=== PATIENT | female | born 1990 | race Caucasian/White ===

== ENCOUNTER 2016-10-31 04:34 | Inpatient (IN) | payer BC ==
[2016-10-31] MEDS ORDERED: METHYLERGONOVINE 0.2 MG/ML 1 ML AMP IM PRN (06:22)
[2016-10-31] MEDS ORDERED: OXYTOCIN 10 UNIT/ML 1 ML VIAL IM PRN (06:22)
[2016-10-31] MEDS ORDERED: CARBOPROST TROMETHAMINE 250 MCG/ML 1 ML AMP IM PRN (06:22)
[2016-10-31] MEDS ORDERED: LIDOCAINE 1% (PF) 10 MG/ML (30 ML SDV) SQ PRN (06:22)
[2016-10-31] MEDS ORDERED: TERBUTALINE 1 MG/ML VIAL SQ PRN (06:22)
[2016-10-31 06:43] LABS: Basophils % (A) 0 %; CH 30.7; Eosinophils # (A) 0.1 k/uL (0-0.7); Eosinophils % (A) 1 %; HCT 38.6 % (34.0-46.0); HDW 2.43; HGB 13.4 gm/dL (11.4-16.0); Luc # (Auto) 0.17; Luc % (Auto) 1; Lymphocytes # (A) 1.5 k/uL (1.0-4.8); Lymphocytes % (A) 11 %; MCH 31.5 pg (25.0-35.0); MCHC 34.7 g/dL (31.0-37.0); MCV 90.7 fL (80.0-100.0); Mean Platelet Volume 9.8; Monocytes # (A) 0.8 k/uL (0-1.0); Monocytes % (A) 6 %; Neutrophils # (A) 11.2 k/uL (1.3-7.7); Neutrophils % (A) 81 %; RBC 4.26 m/uL (3.80-5.40); RDW 14.6 % (11.5-15.5); WBC 13.9 k/uL (3.8-10.6); WBC (Perox) 14.46
[2016-10-31] MEDS: LACTATED RINGERS 1,000 ML IV SCH ×2 (07:08→14:44)
[2016-10-31 07:14] VITALS: BMI 33.7
--- NOTE | 2016-10-31 07:15 | P.HPOB ---
History of Present Illness H&P Date: 10/31/16 Chief Complaint: Active labor, contractions, intrauterine at 41-2/7 weeks This is a 26 year old 1 para 0 at 41-2/7 weeks with the last month Rosemary is me with an estimated due date of 714 based on last menstrual period equal to a 20 week ultrasound. States contractions started early this morning and then she came into labor and delivery. Contractions are every 2-3 minutes currently no loss of fluid or vaginal bleeding at home and she noted good movement. lab work showed a blood type of AB- she was RPR nonreactive rubella immune hepatitides B 16 and was negative HIV was negative and group beta strep was negative on 09/20/2016. She did pass her 1hour gds. Past Medical History Past Medical History: No Reported History History of Any Multi-Drug Resistant Organisms: None Reported Past Surgical History: Breast Surgery, Cholecystectomy Additional Past Surgical History / Comment(s): eustachian tubes, nose fracture, breast biopsy, Past Anesthesia/Blood Transfusion Reactions: No Reported Reaction Smoking Status: Never smoker - Past Family History Mother Family Medical History: No Reported History Medications and Allergies Home Medications Medication Instructions Recorded Confirmed Type Pnv No.95/Ferrous Fum/Folic AC 1 tab PO DAILY 10/31/16 10/31/16 History [ Multivitamin Tablet] Allergies Allergy/AdvReac Type Severity Reaction Status Date / Time No Known Allergies Allergy Verified 10/31/16 04:38 Exam Osteopathic Statement: *. No significant issues noted on an osteopathic structural exam other than those noted in the History and Physical/Consult. - Vital Signs Vital signs: Vital Signs Temp Pulse Resp BP Pulse Ox 10/31/16 04:38 96.5 F L 100 16 132/88 97 Intake and Output 10/30/16 10/31/16 10/31/16 22:59 06:59 14:59 Other: Weight 92.079 kg - OBG Physical Exam Abdomen: gravid and appropriate for gestational age Vulva: both: normal Cervix: 7- 8 cm 80% effaced at a -1 Results Result Diagrams: 10/31/16 06:20 Abnormal Lab Results - Last 24 Hours (Table) 10/31/16 Range/Units 06:20 WBC 13.9 H (3.8-10.6) k/uL Neutrophils # 11.2 H (1.3-7.7) k/uL Assessment and Plan (1) Active labor at term Status: Acute Plan: We'll admit patient to labor and delivery with expectant management and anticipate spontaneous vaginal delivery
[2016-10-31] MEDS ORDERED: Acetaminophen-Codeine 300-30mg TAB PO PRN (11:59)
[2016-10-31] MEDS ORDERED: WITCH HAZEL 1 EACH MED..PAD TOPICAL PRN (11:59)
[2016-10-31] MEDS ORDERED: HYDROCORTISONE 2.5% RECTAL CREAM 30 GM TUBE RECTAL PRN (11:59)
[2016-10-31] MEDS ORDERED: diphenhydrAMINE 50 MG/ML 1 ML VIAL IVP PRN ×2 (11:59)
[2016-10-31] MEDS ORDERED: BENZOCAINE/MENTHOL SPRAY 1 GM/SPRAY AEROSOL TOPICAL PRN (11:59)
[2016-10-31] MEDS ORDERED: SIMETHICONE 80 MG CHEWABLE PO PRN (11:59)
[2016-10-31] MEDS ORDERED: diphenhydrAMINE 25 MG CAP PO PRN (11:59)
[2016-10-31] MEDS ORDERED: diphenhydrAMINE 50 MG CAP PO PRN (11:59)
[2016-10-31] MEDS ORDERED: LANOLIN CREAM 5 GM TUBE TOPICAL PRN (11:59)
[2016-10-31] MEDS ORDERED: ZOLPIDEM 5 MG TAB PO PRN (11:59)
--- NOTE | 2016-10-31 11:59 | P.PROBDLV ---
Vaginal Delivery Note - . Vaginal Delivery Note: Derick lucero 26-year-old 1 now para 1 presented to labor and delivery with complaints of contractions earlier today she progressed to complete without difficulty and began pushing and had a spontaneous vaginal delivery over an intact perineum of a viable female infant at 1138. ( tyler) Apgars were 7 and 8 at one and 5 minutes respectively. Her estimated blood loss was less than 500 mL. A midline second-degree laceration was noted after the placenta had been delivered spontaneously. This laceration was repaired with 3-0 Vicryl in the usual fashion.
[2016-10-31] MEDS: IBUPROFEN 600 MG TAB PO PRN ×2 (12:07→19:41)
[2016-10-31] MEDS ORDERED: OXYTOCIN 20 UNITS/1000 ML NS 1,000 ML IV SCH (12:15)
[2016-10-31] MEDS: ACETAMINOPHEN TAB 325 MG TAB PO PRN ×2 (16:00→23:57)
[2016-10-31] MEDS: SENNOSIDES-DOCUSATE SODIUM 1 EACH TAB PO SCH (19:41)
[2016-11-01] MEDS: LACTATED RINGERS 1,000 ML IV SCH (00:36)
[2016-11-01] MEDS: IBUPROFEN 600 MG TAB PO PRN ×3 (06:02→19:15)
[2016-11-01 06:36] LABS: Basophils # (A) 0.1 k/uL (0-0.2); Basophils % (A) 0 %; CH 30.4; CHCM 33.2; Eosinophils # (A) 0.1 k/uL (0-0.7); Eosinophils % (A) 1 %; HCT 33.8 % (34.0-46.0); HGB 11.3 gm/dL (11.4-16.0); Luc # (Auto) 0.24; Luc % (Auto) 1; Lymphocytes % (A) 12 %; MCH 30.7 pg (25.0-35.0); MCHC 33.3 g/dL (31.0-37.0); MCV 92.1 fL (80.0-100.0); Mean Platelet Volume 8.8; Monocytes # (A) 0.9 k/uL (0-1.0); Monocytes % (A) 5 %; Neutrophils # (A) 13.4 k/uL (1.3-7.7); Neutrophils % (A) 80 %; RBC 3.67 m/uL (3.80-5.40); WBC 16.7 k/uL (3.8-10.6); WBC (Perox) 17.44
[2016-11-01] MEDS: ACETAMINOPHEN TAB 325 MG TAB PO PRN ×2 (08:16→15:39)
[2016-11-01] MEDS: SENNOSIDES-DOCUSATE SODIUM 1 EACH TAB PO SCH (08:17)
--- NOTE | 2016-11-01 08:38 | P.PNOBGVD ---
Subjective - Subjective Patient reports: Reports appetite normal, Reports voiding normally, Reports pain well controlled, Reports ambulating normally : doing well Objective - Latest Vital Signs Latest vital signs: Vital Signs Temp Pulse Resp BP Pulse Ox 11/01/16 08:00 98.5 F 100 16 119/73 11/01/16 00:00 98.5 F 119 H 18 120/80 97 10/31/16 20:00 97.7 F 118 H 17 131/82 97 10/31/16 16:00 97.6 F 126 H 18 130/71 97 10/31/16 13:54 97.6 F 115 H 17 117/76 96 10/31/16 13:24 122 H 19 125/79 10/31/16 12:54 117 H 16 120/83 10/31/16 12:39 127 H 18 141/80 10/31/16 12:24 117 H 18 117/69 10/31/16 12:09 123 H 17 116/67 10/31/16 11:54 97.1 F L 126 H 16 142/76 96 Intake and Output 10/31/16 11/01/16 11/01/16 22:59 06:59 14:59 Intake Total 600 Balance 600 Intake: Oral 600 Other: # Voids 0 2 1 - Exam Lungs: bilateral: normal Chest: Normal S1, Normal S2 Extremities: Present: normal Abdomen: Present: normal appearance, soft Uterus: Present: normal, firm (Uterine fundus as tonic and nontender at the umbilicus.) - Labs Labs: Abnormal Lab Results - Last 24 Hours (Table) 11/01/16 Range/Units 06:15 WBC 16.7 H (3.8-10.6) k/uL RBC 3.67 L (3.80-5.40) m/uL Hgb 11.3 L (11.4-16.0) gm/dL Hct 33.8 L (34.0-46.0) % Neutrophils # 13.4 H (1.3-7.7) k/uL Assessment and Plan (1) Normal spontaneous vaginal delivery Narrative/Plan: Continue routine care. The patient will seek the assistance of the direct response consultant today and I anticipate discharge home tomorrow. Current Visit: Yes Status: Acute Code(s): O80 - ENCOUNTER FOR FULL-TERM UNCOMPLICATED DELIVERY SNOMED Code(s): 53611512
[2016-11-02] MEDS: ACETAMINOPHEN TAB 325 MG TAB PO PRN ×2 (00:16→06:56)
[2016-11-02] MEDS: SENNOSIDES-DOCUSATE SODIUM 1 EACH TAB PO SCH ×2 (00:45→07:33)
[2016-11-02 00:48] VITALS: RESP 17
[2016-11-02 09:30] VITALS: BP 115/73; PULSE 87; TEMP 97.8
--- NOTE | 2016-11-02 09:35 | P.DS ---
Providers Date of admission: 10/31/16 06:07 Expected date of discharge: 11/02/16 Attending physician: Netta Davey - Discharge Diagnosis(es) (1) Normal spontaneous vaginal delivery Current Visit: Yes Status: Acute Hospital Course: The patient is a 26-year-old 1 para 0 admitted at 41-2/7 weeks by good dating parameters. She is admitted in early active labor with all signs reassuring. Her has been uncomplicated and group B strep status is negative. On labor and delivery, she made fairly quick progression to complete and then pushed for approximately 3 hours but ultimately to a normal spontaneous vaginal delivery of a viable 7 lbs. 9 oz. baby girl with Apgars of 8 at 1 minute and 9 at 5 minutes. Her course was unremarkable with vital signs remaining stable and her temperature was afebrile throughout. She was deemed stable for discharge by day #2 and was discharged home to follow-up in the office in 6 weeks' time routinely. Discharge instructions included calling for any significantly increased bleeding or foul-smelling lochia, significantly increased fever abdominal pain, perineal complaints, breast complaints, or anything else that concerned her. She was additionally instructed to have nothing in the vagina for at least 6 weeks time to include intercourse. She understood her instructions and agrees to follow up as noted above. Discharge medications included continued vitamins as well as [id number]-[id number] analgesic pain medications as needed. Maternal blood type is AB- and cord blood was sent for evaluation for the necessity of RhoGAM prior to discharge. Rubella status is immune. Procedures: #1. Normal spontaneous vaginal delivery #2. Repair of perineal laceration Patient Condition at Discharge: Good Plan - Discharge Summary New Discharge Prescriptions: No Action Pnv No.95/Ferrous Fum/Folic AC [ Multivitamin Tablet] 1 tab PO DAILY Discharge Medication List Pnv No.95/Ferrous Fum/Folic AC [ Multivitamin Tablet] 1 tab PO DAILY [History] Follow up Appointment(s)/Referral(s): Jacob Abad MD [STAFF PHYSICIAN] - 6 Weeks Discharge Disposition: HOME SELF-CARE
[2016-11-02] MEDS: IBUPROFEN 600 MG TAB PO PRN (10:55)
== END 2016-11-02 13:45 | disposition home or self-care (01) | DRG 775 ==
LOC: FBPOP 04:34 → 4FBP 06:07
PROVIDERS: ADMIT Obstetrics & Gynecology Obstetrics; ATTEND Obstetrics & Gynecology Obstetrics
PROC: 10E0XZZ Delivery of Products of Conception, External Approach (ICD-10-PCS; principal; 2016-10-31)
PROC: 0KQM0ZZ Repair Perineum Muscle, Open Approach (ICD-10-PCS; 2016-10-31)
DX: O48.0 Post-term pregnancy (principal); O70.1 Second degree perineal laceration during delivery; Z3A.41 41 weeks gestation of pregnancy; Z37.0 Single live birth
CPT/HCPCS: 59025; 84112; 85025; 88307; 99213

== ENCOUNTER 2019-10-15 07:10 | Inpatient (IN) | payer BC ==
[2019-10-15] MEDS ORDERED: ZOLPIDEM 5 MG TAB PO PRN (07:25)
[2019-10-15] MEDS ORDERED: WITCH HAZEL 1 EACH MED..PAD TOPICAL PRN (07:25)
[2019-10-15] MEDS ORDERED: diphenhydrAMINE 25 MG CAP PO PRN (07:25)
[2019-10-15] MEDS ORDERED: HYDROCORTISONE 2.5% RECTAL CREAM 30 GM TUBE RECTAL PRN (07:25)
[2019-10-15] MEDS ORDERED: LANOLIN CREAM 5 GM TUBE TOPICAL PRN (07:25)
[2019-10-15] MEDS ORDERED: ACETAMINOPHEN TAB 325 MG TAB PO PRN (07:25)
[2019-10-15] MEDS ORDERED: SIMETHICONE 80 MG CHEWABLE PO PRN (07:25)
[2019-10-15] MEDS ORDERED: BENZOCAINE/MENTHOL SPRAY 1 GM/SPRAY AEROSOL TOPICAL PRN (07:25)
[2019-10-15] MEDS ORDERED: diphenhydrAMINE 50 MG CAP PO PRN (07:25)
[2019-10-15] MEDS ORDERED: OXYTOCIN 20 UNITS/1000 ML NS 1,000 ML IV SCH (07:30)
[2019-10-15 08:24] LABS: Basophils % (A) 0 %; Eosinophils # (A) 0.1 k/uL (0-0.7); Eosinophils % (A) 1 %; Lymphocytes # (A) 1.3 k/uL (1.0-4.8); Lymphocytes % (A) 9 %; MCH 28.3 pg (25.0-35.0); MCHC 32.4 g/dL (31.0-37.0); MCV 87.3 fL (80.0-100.0); Mean Platelet Volume 8.9; Monocytes # (A) 0.7 k/uL (0-1.0); Monocytes % (A) 5 %; Neutrophils # (A) 12.1 k/uL (1.3-7.7); Neutrophils % (A) 84 %; Platelet Count 212 k/uL (150-450); RBC 4.58 m/uL (3.80-5.40); RDW 13.4 % (11.5-15.5); WBC 14.3 k/uL (3.8-10.6)
[2019-10-15] MEDS: IBUPROFEN 600 MG TAB PO PRN ×2 (08:44→20:42)
--- NOTE | 2019-10-15 10:48 | P.HPOB ---
History of Present Illness H&P Date: 10/15/19 Chief Complaint: 40-0/7, precipitous delivery at home The patient is a 29-year-old 2 para 1001 admitted at 40-0/7 weeks as established by last menstrual period and confirmed by 8 week ultrasound. She is admitted after having had a precipitous home delivery in the presence of EMS staff. At the time of presentation to the hospital, both the and the placenta had been delivered and both mother and were comfortably in recovery. Her has been uncomplicated though she did have a large for gestational age fetus at 36 weeks noted to be in the 94th percentile. Group B strep status was negative. Obstetrical history: 2 para 1001 with 1 term vaginal delivery without complications. Current statistics are listed in history present illness. EDC of 10/15/2019 was established by last menstrual period and confirmed by 8 week ultrasound. Laboratory workup demonstrates a blood type of AB- with a negative antibody screen. Rubella status is immune. The remainder of the laboratory workup was within normal limits. One hour Glucola was elevated but followed by a normal three-hour glucose tolerance test. Group B strep status is negative. Gynecologic history: Unremarkable with no history of any infections to include STDs. Review of Systems Review of systems is confined to history of present illness. Past Medical History Past Medical History: No Reported History History of Any Multi-Drug Resistant Organisms: None Reported Past Surgical History: Breast Surgery, Cholecystectomy Additional Past Surgical History / Comment(s): eustachian tubes, nose fracture, breast biopsy, Past Anesthesia/Blood Transfusion Reactions: No Reported Reaction Past Psychological History: No Psychological Hx Reported Smoking Status: Never smoker Past Alcohol Use History: None Reported, Occasional Past Drug Use History: None Reported - Past Family History Mother Family Medical History: No Reported History Medications and Allergies Home Medications Medication Instructions Recorded Confirmed Type Pnv No.95/Ferrous Fum/Folic AC 1 tab PO DAILY 10/31/16 10/31/16 History [ Multivitamin Tablet] Allergies Allergy/AdvReac Type Severity Reaction Status Date / Time No Known Allergies Allergy Verified 10/31/16 04:38 Exam Vital Signs Temp Pulse Resp BP 10/15/19 10:29 88 16 133/83 10/15/19 09:00 88 16 129/65 10/15/19 08:30 93 16 135/84 10/15/19 07:45 94 16 119/77 10/15/19 07:30 81 16 124/75 10/15/19 07:23 97.9 F 81 16 128/79 10/15/19 07:15 97.9 F 81 16 128/79 Intake and Output 10/14/19 10/15/19 10/15/19 22:59 06:59 14:59 Output Total 100 Balance -100 Output: Estimated Blood Loss 100 Other: Weight 97.069 kg In general, this is a well-developed, well-nourished white female in no acute distress resting comfortably in recovery after delivery. Her heart has a regular rhythm and rate without murmur. Her lungs are clear to auscultation bilaterally in all orta. Her abdomen is nondistended, has normal active bowel sounds, soft, nontender, and without any palpable masses aside from the tonic uterine fundus noted just below the umbilicus. Her extremities are without any cyanosis, clubbing, or significant edema and are nontender to palpation bi laterally. Pelvic examination is confined to examination the perineum which demonstrates a small second-degree perineal laceration which requires a [id number] stitch to close. Results Result Diagrams: 10/15/19 08:04 Abnormal Lab Results - Last 24 Hours (Table) 10/15/19 Range/Units 08:04 WBC 14.3 H (3.8-10.6) k/uL Neutrophils # 12.1 H (1.3-7.7) k/uL Assessment and Plan (1) Precipitous delivery Current Visit: Yes Status: Acute Code(s): O62.3 - PRECIPITATE LABOR SNOMED Code(s): 402060907 (2) Normal spontaneous vaginal delivery Current Visit: Yes Status: Acute Code(s): O80 - ENCOUNTER FOR FULL-TERM UNCOMPLICATED DELIVERY SNOMED Code(s): 46985283 Plan: As noted in history of present illness, the patient delivered precipitously while at home in the presence of EMS staff. She reports that she had had spontaneous rupture of membranes at approximately 4:30 in the morning after which times contractions became significantly harder and she suddenly felt the urge to push. On labor and delivery, all signs are reassuring and she is stable. She is admitted for routine care.
--- NOTE | 2019-10-15 10:52 | P.PROBDLV ---
Vaginal Delivery Note - . Vaginal Delivery Note: The patient is a 29-year-old 2 para 1001 admitted at 40-0/7 weeks by good dating parameters. She is admitted after delivery precipitously at home in the presence of EMS staff. Her has been uncomplicated up to this point and group B strep status is negative. She is known to be Rh- and did not receive RhoGAM as her is also known to be Rh-. She reports that labor began with rupture of membranes at approximately 4:30 this morning after which time contractions became significantly close together and uncomfortable. She had called for an ambulance which arrived just as she felt the urge to push. She then pushed to a normal spontaneous vaginal delivery of a viable 7 lbs. 13 oz. baby girl. Apgars were not assigned by EMS but the baby was reportedly vigorous after some stimulation. In transit to the hospital, the placenta was apparently delivered spontaneously and intact. Upon arrival to the hospital I was telephoned at which time I presented and examined the patient and found her to have a very small second-degree midline perineal laceration which required a dzpeli-[id number] stitch of 3-0 chromic catgut placed under 1% lidocaine local block. Estimated blood loss for the entire case was unclear as it was on documented by the EMS staff. There were no complications aside from the home delivery and precipitous nature of the delivery. All sponge, instrument, and needle counts were correct at the end of examination of the patient. Both mother and infant are resting comfortably in recovery.
[2019-10-15] MEDS: SENNOSIDES-DOCUSATE SODIUM 1 EACH TAB PO SCH ×2 (20:43)
[2019-10-16 05:39] LABS: Basophils % (A) 0 %; Eosinophils # (A) 0.1 k/uL (0-0.7); Eosinophils % (A) 1 %; HCT 35.9 % (34.0-46.0); HGB 11.4 gm/dL (11.4-16.0); Lymphocytes % (A) 19 %; MCH 27.5 pg (25.0-35.0); MCHC 31.7 g/dL (31.0-37.0); MCV 86.9 fL (80.0-100.0); Mean Platelet Volume 8.7; Monocytes # (A) 0.7 k/uL (0-1.0); Monocytes % (A) 7 %; Neutrophils % (A) 70 %; Platelet Count 186 k/uL (150-450); RBC 4.14 m/uL (3.80-5.40); RDW 13.8 % (11.5-15.5)
--- NOTE | 2019-10-16 08:58 | P.DS ---
Providers Date of admission: 10/15/19 07:10 Expected date of discharge: 10/16/19 Attending physician: Jacob Abad Primary care physician: Stated None - Discharge Diagnosis(es) (1) Precipitous delivery Current Visit: Yes Status: Acute (2) Normal spontaneous vaginal delivery Current Visit: Yes Status: Acute Hospital Course: The patient is a 29-year-old 2 para 1001 admitted at 40-0/7 weeks by good dating parameters perches admitted after having had a precipitous home delivery in the presence of EMS staff. She ultimately presented to labor and delivery having delivered the placenta as well which was examined and found to be complete. She was noted to have a small second-degree perineal laceration which was repaired. Her course has been unremarkable with vital signs being stable and her temperature was afebrile throughout. She was deemed stable for discharge on day #1 was discharged home to follow-up in the office in 6 weeks' time routinely. Discharge instructions included calling for any significantly increased bleeding or foul-smelling lochia, significantly increased fever or abdominal pain, perineal complaints, breast complaints, or anything else that concerned her. She was additionally instructed to have nothing in the vagina for at least 6 weeks time to include intercourse. She understood her instructions and agrees follow up as noted above. Discharge medications included only continue vitamins as she has opted to breast- feed as well as continued [id number] analgesic pain medications as needed. Maternal blood type is AB- and her is also known to be Rh- so cord blood was not sent for evaluation for the necessity of RhoGAM. Rubella status is immune. Procedures: #1. Precipitous normal spontaneous vaginal delivery at home #2. Repair of perineal laceration Patient Condition at Discharge: Good Plan - Discharge Summary Discharge Rx Participant: No New Discharge Prescriptions: No Action Pnv No.95/Ferrous Fum/Folic AC [ Multivitamin Tablet] 1 tab PO DAILY Discharge Medication List Pnv No.95/Ferrous Fum/Folic AC [ Multivitamin Tablet] 1 tab PO DAILY 10/31/16 [History] Follow up Appointment(s)/Referral(s): Jacob Abad MD [STAFF PHYSICIAN] - 6 Weeks Discharge Disposition: HOME SELF-CARE
[2019-10-16] MEDS: SENNOSIDES-DOCUSATE SODIUM 1 EACH TAB PO SCH (08:59)
[2019-10-16 12:37] VITALS: BP 115/68; PULSE 97; RESP 16; TEMP 98.3
[2019-10-16] MEDS: IBUPROFEN 600 MG TAB PO PRN (15:24)
== END 2019-10-16 15:30 | disposition home or self-care (01) | DRG 769 ==
LOC: 4FBP 07:10
PROVIDERS: ADMIT Obstetrics & Gynecology Obstetrics; ATTEND Obstetrics & Gynecology
PROC: 0KQM0ZZ Repair Perineum Muscle, Open Approach (ICD-10-PCS; principal; 2019-10-15)
DX: Z39.0 Encounter for care and examination of mother immediately after delivery (principal); O62.3 Precipitate labor; O70.1 Second degree perineal laceration during delivery; Z37.0 Single live birth; Z3A.40 40 weeks gestation of pregnancy; Z90.49 Acquired absence of other specified parts of digestive tract; Z87.19 Personal history of other diseases of the digestive system; Z87.81 Personal history of (healed) traumatic fracture; Z86.69 Personal history of other diseases of the nervous system and sense organs; Z98.890 Other specified postprocedural states
CPT/HCPCS: 85025; 86850; 86900; 86901

== ENCOUNTER → 2024-03-01 | Outpatient (CLI) | payer BC ==
--- NOTE | 2024-03-01 10:52 | US ---
EXAMINATION TYPE: US axilla LT DATE OF EXAM: 03/01/2024 COMPARISON: NONE CLINICAL INDICATION: Female, 33 years old with history of R68.89 ABN CLINICAL FINDING; Lump in axilla x few years; More painful TECHNIQUE: Grayscale and color Doppler imaging of the left axilla. FINDINGS: Complex area seen at patients area of concern = 3.4 x 1.7 x 2.8 cm little color Doppler f low around the periphery. No lymphadenopathy. Identified. IMPRESSION: Complex area in the area of concern possibly abscess correlate clinically. [facility], , 03/01/2024 10:50 AM
== END | disposition home or self-care (01) ==
LOC: RADUSWWP 09:24
PROVIDERS: ATTEND Obstetrics & Gynecology
DX: R68.89 Other general symptoms and signs (principal)